=== PATIENT | male | born 1970 | race Caucasian/White ===

== ENCOUNTER → 2019-10-06 | Outpatient (CLI) | payer OTHER ==
[2019-10-09 17:10] LABS: FREE TESTOSTERONE(DIRECT) 11.2 pg/mL (6.8-21.5); TESTOSTERONE, SERUM 380 ng/dL (264-916)
== END | disposition home or self-care (01) ==
LOC: LAB SHORT 17:51 → LAB 17:51
PROVIDERS: Family Medicine
DX: R53.83 Other fatigue (principal)
CPT/HCPCS: 82306; 84402; 84403; 84443